=== PATIENT | female | born 1995 | race Asian ===

== ENCOUNTER 2016-12-12 14:01 | Emergency (ER) | payer SELFPAY ==
[2016-12-12 15:26] VITALS: BP 108/75
--- NOTE | 2016-12-13 00:15 | Emergency Department Report ---
Entered by EZE MOONEY, acting as scribe for HARI HAYS PA. - General Chief complaint: Skin Rash Stated complaint: RASH ON FACE Time Seen by Provider: 12/12/16 16:05 Source: patient Mode of arrival: Ambulatory Limitations: No Limitations - History of Present Illness Initial comments: 21 y/o female with no significant PMHx presents to the ED c/o a rash on left mandible that began 3 days ago. Rates severity a 0/10. Patient states she went to an abandoned warehouse 3 days ago and woke up the next morning with a rash. Denies getting bitten by an insect to her knowledge. Reports associated itching to affected area, but she denies fever, chills, dental pain, ear ache, and dental caries. Denies Hx of similar rash. Patient states she recently starting suffering from facial acne. Notes having white pustules to affected area on the first day of onset and facial swelling on the second day of onset, but she is not currently experiencing those symptoms. Denies working in a healthcare workplace recently and taking control. Denies having facial contact with any genitals. Applied tea tree oil with some relief. LMP 11/18/2016. NKDA. MACKENZIE complaint: rash Onset/Timin -: days(s) Location: face (left mandible) Severity: mild Severity scale (0 -10): 0 Consistency: constant Improves with: none Worsens with: none Context: other (possible infected unknown insect bite) Associated symptoms: denies other symptoms, itching Treatments Prior to Arrival: none, other (Tea tree oil) - Related Data Allergies Allergy/AdvReac Type Severity Reaction Status Date / Time No Known Allergies Allergy Unverified 09/08/15 20:06 Abscess Boil HPI - HPI Chief Complaint: Skin Rash Stated Complaint: RASH ON FACE Duration: 3 Days Location: Head (left mandible) Severity: None History: No Fever, No Pain, No Purulent Drainage, No Numbness, No Foreign Body, No Previous History, No Insect Bite (unknown) Allergies/Adverse Reactions: Allergies Allergy/AdvReac Type Severity Reaction Status Date / Time No Known Allergies Allergy Unverified 09/08/15 20:06 ED Review of Systems Comment: All other systems reviewed and negative Constitutional: denies: chills, fever Eyes: denies: eye pain, eye discharge, vision change ENT: denies: ear pain, throat pain, dental pain Respiratory: denies: cough, shortness of breath, wheezing Cardiovascular: denies: chest pain, palpitations Endocrine: no symptoms reported Gastrointestinal: denies: abdominal pain, nausea, vomiting, diarrhea Musculoskeletal: denies: back pain, joint swelling, arthralgia Skin: rash (left mandible with associated itching). denies: lesions Neurological: denies: headache, weakness, numbness, paresthesias ED Past Medical Hx - Past Medical History Previous Medical History?: No - Surgical History Past Surgical History?: No - Social History Smoking Status: Never Smoker Substance Use Type: Alcohol ED Physical Exam - General Limitations: No Limitations General appearance: alert, in no apparent distress - Head Head exam: Present: atraumatic, normocephalic - Eye Eye exam: Present: normal appearance, PERRL, EOMI Pupils: Present: normal accommodation - ENT ENT exam: Present: normal exam, normal orophraynx, mucous membranes moist, TM's normal bilaterally, normal external ear exam - Expanded ENT Exam Expanded Ear exam: Present: normal external inspection Mouth exam: Present: normal external inspection, tongue normal. Absent: drooling, trismus, muffled voice, tongue elevation, laceration Teeth exam: Present: normal inspection. Absent: dental caries, gingival enlargement, other (dental abscesses) Throat exam: Positive: normal inspection. Negative: tonsillar erythema, tonsillomegaly, tonsillar exudate - Neck Neck exam: Present: normal inspection, full ROM. Absent: tenderness, meningismus, lymphadenopathy - Respiratory Respiratory exam: Present: normal lung sounds bilaterally. Absent: respiratory distress, wheezes, rales, rhonchi, stridor, accessory muscle use, decreased breath sounds - Cardiovascular Cardiovascular Exam: Present: regular rate, normal rhythm, normal heart sounds. Absent: systolic murmur, diastolic murmur, rubs, gallop - GI/Abdominal GI/Abdominal exam: Present: soft, normal bowel sounds. Absent: distended - Extremities Exam Extremities exam: Present: normal inspection, full ROM - Back Exam Back exam: Present: normal inspection, full ROM - Neurological Exam Neurological exam: Present: alert, oriented X3, normal gait - Psychiatric Psychiatric exam: Present: normal affect, normal mood - Skin Skin exam: Present: warm, dry, intact, rash (eythematous, mildly excoriated rash on left mandible with no purulent drainage, flunctuance, or sign of infection noted) ED Course Vital Signs 12/12/16 15:22 Temperature 98.2 F Pulse Rate 89 Respiratory 14 Rate Blood Pressure 108/75 O2 Sat by Pulse 98 Oximetry ED Medical Decision Making - Medical Decision Making A/P: Acne 1-will give patient topical medicines according to [email or web address] first-line recommendations for topical medicine. I initially intended to give doxycycline but patient stated she could not wait for results of test. There are no signs of cellulitis no abscess and no herpetic lesions on face. Patient's vital signs are stable. No intraoral lesions 2-patient given referral information for primary care and dermatology ED Disposition Clinical Impression: Acne Qualifiers: Acne type: unspecified acne Qualified Code(s): L70.9 - Acne, unspecified Disposition: DC-01 TO HOME OR SELFCARE Is pt being admited?: No Does the pt Need Aspirin: No Condition: Stable Instructions: Benzoyl Peroxide (On the skin) Prescriptions: Benzoyl Peroxide [Foaming Acne Face Wash] 187 gm TP TID #1 cleanser Erythromycin Base [Erythromycin] 1 gm OP BID #1 oint...g. Referrals: [facility] [Provider Group] - 3-5 Days [facility] [Provider Group] - 3-5 Days Forms: Accompanied Note, Work/School Release Form(ED) This documentation as recorded by the VINICIO oh JASMINE,accurately reflects the service I personally performed and the decisions made by ,HARI HAYS PA.
== END 2016-12-12 16:27 | disposition home or self-care (01) ==
LOC: ED 14:01
DX: L70.9 Acne, unspecified (principal)
CPT/HCPCS: 81025; 99283